=== PATIENT | male | born 1965 | race Caucasian/White ===

== ENCOUNTER 2018-01-04 14:03 | Outpatient (CLI) | payer BC ==
[~2018-01-04] VITALS: Ht 167.6 cm; Wt 88.0 kg
[2018-01-04] MEDS ORDERED: methylPREDNISolone 80 MG/ML (DEPO MEDROL) VIAL ONE (14:16)
[2018-01-04 14:25] VITALS: BP 155/85
[2018-01-04 14:40] VITALS: BP 150/92
== END 2018-01-04 14:43 | disposition home or self-care (01) ==
LOC: CARD 14:03
PROVIDERS: ATTEND Pain Medicine Interventional Pain Medicine
DX: M54.16 Radiculopathy, lumbar region (principal)
CPT/HCPCS: 62323

== ENCOUNTER → 2019-01-03 | Emergency (ER) | payer BC ==
[~2019-01-03] VITALS: Ht 167.6 cm; Wt 82.6 kg
[~2019-01-03] MED LIST: HYDR-4226 PO; METH-313 PO; SULF1TAB35 PO; TRIM/SULFAMETH 160/800 (SEPTRA DS) TAB PO ONE
--- NOTE | 2019-01-03 13:44 | ED Head Injury ---
General Chief Complaint: Head/Cervical Problems Stated Complaint: HEAD INJURY Nursing Triage Note: STATES A WEEK AGO MONDAY HE HAD SEVERE PAIN IN HIS SCROTUM. HE WALKED TO THE BATHROOM AND WOKE UP FACE DOWN ON THE BATHROOM FLOOR. COMPLAINS OF HEAD AND NECK PAIN ALONG WITH DILATED PUPILS AND MEMORY LOSS. CALLED HIS DR WHO TOLD HIM TO COME HERE FOR A CT. ALSO STATES HE IS STILL HAVING SCROTAL PAIN AND THINKS HE HAS A INFECTION IN HIS PROSTATE BECAUSE HE HAS HAD ONE BEFORE. Source: patient ( sure of the right) Exam Limitations: no limitations History of Present Illness Date Seen by Provider: Jan 03, 2019 Time Seen by Provider: 13:40 Initial Comments is to ER with a one-week history of pain in the perineal space and urinary frequency. He the pain is very intense, but a week ago that caused him to become diaphoretic and then he fell face forward striking the left side of his cheek on the floor. Since then he's had headaches, neck pain, intermittent memory loss and yesterday noticed dilated pupils. He is on baby aspirin daily. In regards to his perineal pain he had this before and states that it was a infection of his prostate. He denies any sores wounds or skin changes to the perineal or scrotal region. Her to fall because he was very diaphoretic at the time. Occurred: last week Severity: moderate Location: global Method of Injury: direct blow, fell Loss of Consciousness: no loss of consciousness Associated Systoms: Fever/Chills, Headaches, Syncope (chills but no fever) Allergies and Home Medications Allergies Coded Allergies: cephalexin (Verified Allergy, Unknown, 01/03/19) shellfish derived (Verified Allergy, Unknown, 01/03/19) Home Medications Hydrocodone/Acetaminophen 1 Each Tablet, 1 EACH PO Q6H PRN for PAIN-MODERATE Prescribed by: KORTNEY PENNY on 01/03/19 1448 Methocarbamol 750 Mg Tablet, 750 MG PO Q4H PRN for PAIN-MODERATE TO SEVERE Prescribed by: KORTNEY PENNY on 01/03/19 1448 Sulfamethoxazole/Trimethoprim 1 Each Tablet, 1 EACH PO BID Prescribed by: KORTNEY PENNY on 01/03/19 1448 Patient Home Medication List Home Medication List Reviewed: Yes Review of Systems Review of Systems Constitutional: see HPI Eyes: No Symptoms Reported Ears, Nose, Mouth, Throat: no symptoms reported Respiratory: no symptoms reported Cardiovascular: no symptoms reported Gastrointestinal: No abdominal pain Genitourinary: see HPI, dysuria, frequency, pain Musculoskeletal: no symptoms reported Skin: no symptoms reported Psychiatric/Neurological: No Symptoms Reported Endocrine: No Symptoms Reported Past Kevvgns-Yvrjri-Znawjq Hx Patient Social History Alcohol Use: Denies Use Recreational Drug Use: No Smoking Status: Never a Smoker Recent Foreign Travel: No Contact w/Someone Who Travel: No Recent Infectious Disease Expo: No Recent Hopitalizations: No Seasonal Allergies Seasonal Allergies: No Past Medical History Surgeries: No Respiratory: No Cardiac: No Neurological: No Genitourinary: No Gastrointestinal: No Musculoskeletal: No Endocrine: No HEENT: No Cancer: No Psychosocial: No Integumentary: No Blood Disorders: No Physical Exam Vital Signs Vital Signs - First Documented 01/03/19 12:20 Temp 97.7 Pulse 108 Resp 16 B/P (MAP) 140/92 (108) Pulse Ox 96 O2 Delivery Room Air Capillary Refill : Less Than 3 Seconds Height, Weight, BMI Height: 5'6.00" Weight: 182lbs. 0.0oz. 82.319751hy; 31.3 BMI Method:Stated General Appearance: WD/WN, no apparent distress HEENT: PERRL/EOMI, normal ENT inspection, other (dilated pupils bilaterally that are symmetrical and reactive) Neck: non-tender, full range of motion Respiratory: no respiratory distress, no accessory muscle use Gastrointestinal: normal bowel sounds, non tender Extremities: normal range of motion, non-tender Psychiatric: alert, oriented x 3 Crainal Nerves: normal hearing, normal speech, PERRL Kailey Coma Score Best Eye Response: (4) Open Spontaneously Best Verbal Response: (5) Oriented Best Motor Response: (6) Obeys Commands Kailey Total: 15 Progress/Results/Core Measures Results/Orders Lab Results Laboratory Tests Test 01/03/19 13:35 Range/Units White Blood Count 9.6 4.3-11.0 10^3/uL Red Blood Count 5.28 4.35-5.85 10^6/uL Hemoglobin 17.0 13.3-17.7 G/DL Hematocrit 48 40-54 % Mean Corpuscular Volume 92 80-99 FL Mean Corpuscular Hemoglobin 32 25-34 PG Mean Corpuscular Hemoglobin Concent 35 32-36 G/DL Red Cell Distribution Width 13.6 10.0-14.5 % Platelet Count 215 130-400 10^3/uL Mean Platelet Volume 9.3 7.4-10.4 FL Neutrophils (%) (Auto) 67 42-75 % Lymphocytes (%) (Auto) 22 12-44 % Monocytes (%) (Auto) 9 0-12 % Eosinophils (%) (Auto) 2 0-10 % Basophils (%) (Auto) 1 0-10 % Neutrophils # (Auto) 6.4 1.8-7.8 X 10^3 Lymphocytes # (Auto) 2.1 1.0-4.0 X 10^3 Monocytes # (Auto) 0.9 0.0-1.0 X 10^3 Eosinophils # (Auto) 0.2 0.0-0.3 10^3/uL Basophils # (Auto) 0.1 0.0-0.1 10^3/uL Urine Color YELLOW Urine Clarity CLEAR Urine pH 6 5-9 Urine Specific [place] 1.015 L 1.016-1.022 Urine Protein 1+ H NEGATIVE Urine Glucose (UA) NEGATIVE NEGATIVE Urine Ketones NEGATIVE NEGATIVE Urine Nitrite NEGATIVE NEGATIVE Urine Bilirubin NEGATIVE NEGATIVE Urine Urobilinogen NORMAL NORMAL MG/DL Urine Leukocyte Esterase 1+ H NEGATIVE Urine RBC (Auto) NEGATIVE NEGATIVE Urine RBC NONE /HPF Urine WBC RARE /HPF Urine Squamous Epithelial Cells RARE /HPF Urine Crystals NONE /LPF Urine Bacteria NEGATIVE /HPF Urine Casts NONE /LPF Urine Mucus SMALL H /LPF Urine Culture Indicated NO Sodium Level 138 135-145 MMOL/L Potassium Level 4.4 3.6-5.0 MMOL/L Chloride Level 102 98-107 MMOL/L Carbon Dioxide Level 23 21-32 MMOL/L Anion Gap 13 5-14 MMOL/L Blood Urea Nitrogen 19 H 7-18 MG/DL Creatinine 1.15 0.60-1.30 MG/DL Estimat Glomerular Filtration Rate > 60 BUN/Creatinine Ratio 17 Glucose Level 99 70-105 MG/DL Calcium Level 10.1 8.5-10.1 MG/DL Corrected Calcium 8.5-10.1 MG/DL Total Bilirubin 0.7 0.1-1.0 MG/DL Aspartate Amino Transf (AST/SGOT) 43 H 5-34 U/L Alanine Aminotransferase (ALT/SGPT) 31 0-55 U/L Alkaline Phosphatase 54 40-136 U/L Total Protein 7.7 6.4-8.2 GM/DL Albumin 4.7 H 3.2-4.5 GM/DL My Orders Orders - KORTNEY PENNY APRN Cbc With Automated Diff (01/03/19 13:37) Comprehensive Metabolic Panel (01/03/19 13:37) Ua Culture If Indicated (01/03/19 13:37) Ct Head/Face/Cervical Wo (01/03/19 13:37) Lactated Ringers (Lr 1000 Ml Iv Solution (01/03/19 13:45) Iv Heplock-Insert (Order) (01/03/19 13:37) Urine Culture (01/03/19 14:29) Sulfamethoxazole/Trimet Ds Tab (Bactrim (01/03/19 15:00) Sulfamethoxazole/Trimet Ds Tab (Bactrim (01/03/19 14:46) Medications Given in ED Current Medications Medications Dose Ordered Sig/Jania Route Start Time Stop Time Status Last Admin Dose Admin Trimethoprim/ Sulfamethoxazole 2 ea ONCE ONCE PO 01/03/19 15:00 01/03/19 15:01 DC 01/03/19 14:50 2 EA Vital Signs/I&O 01/03/19 01/03/19 12:20 14:54 Temp 97.7 97.7 Pulse 108 108 Resp 16 16 B/P (MAP) 140/92 (108) 140/92 (108) Pulse Ox 96 96 O2 Delivery Room Air Blood Pressure Mean: 108 Diagnostic Imaging Diagonstic Imaging: CT Comments NAME: MICAH NELLYDARRELL [facility] REC#: [id number] PT STATUS: REG ER : 1965 PHYSICIAN: KORTNEY PENNY APRN ADMIT DATE: 01/03/19/ER Draft Date of Exam:01/03/19 CT HEAD/FACE/CERVICAL WO CLINICAL INDICATION: Patient status post fall a week ago hitting back of head. Patient has memory loss and dilated eyes and is not himself. EXAM: Axial Head CT without IV contrast. Axial Maxillofacial CT scan without IV contrast with sagittal and coronal reformations. Axial CT scan of the cervical spine with sagittal and coronal reformations. COMPARISON: None. FINDINGS: HEAD CT: There is no evidence of acute cerebral infarct, intracranial hemorrhage, or gross mass effect. The brain parenchymal volume appears appropriate for patient's age. There is normal jordan-white matter distinction. There is no significant midline shift or herniation. There is no evidence of hydrocephalus. The basal cisterns are unremarkable. MAXILLOFACIAL CT: There is bony irregularity and medial concave deformities involving the right and left nasal bones concerning for fractures. There appears to be thinning of the soft tissue adjacent to the regions and this may possibly be a chronic finding. There is rightward nasal septal deviation. There is no other concern for acute fracture or dislocation of the maxillofacial structures. There is no skull fracture. The skull, extracranial soft tissue, and orbits are unremarkable. There is a small mucus retention cyst or polyp in right maxillary sinus. Temporal bones show no significant abnormality. CERVICAL SPINE: There is no acute cervical spine fracture or dislocation. There are small spurs anteriorly involving the mid cervical spine. There is facet arthropathy. There is no significant bony central canal or neural foramen narrowing. The neck soft tissue structures show no significant abnormality. Visualized upper lung sarabia are clear. IMPRESSION: 1: There is bony deformities of the right and left nasal bones concerning for fractures. There is soft tissue thinning adjacent to the right and left sides of the nasal bone and these fractures may be chronic. Clinical correlation for pain in this region would better evaluate. 2: There is no other concern for skull or maxillofacial fracture. There is no evidence of acute intracranial process. There is no intracranial hemorrhage. 3: Cervical spine degenerative disease with no acute fracture or dislocation. Dictated on workstation # [id number] Dict: 01/03/19 1424 Trans: 01/03/19 1436 [facility] [id number] Interpreted by: ALY ESPITIA MD Electronically signed by: Departure Impression Primary Impression: Brain concussion Qualified Codes: S06.0X9A - Concussion with loss of consciousness of unspecified duration, initial encounter Additional Impression: Prostatitis Qualified Codes: N41.0 - Acute prostatitis Disposition: 01 HOME, SELF-CARE Condition: Stable Departure-Patient Inst. Decision time for Depature: 14:47 Referrals: KAMINI WHITMORE MD (PCP/Family) Primary Care Physician Patient Instructions: Concussion, Adult (DC), Prostatitis Add. Discharge Instructions: 1. Return to ER for any concerns 2. Medication as directed 3. All discharge instructions reviewed with patient and/or family. Voiced understanding. Scripts Methocarbamol (Robaxin-750) 750 Mg Tablet 750 MG PO Q4H PRN for PAIN-MODERATE TO SEVERE, #14 TAB Prov: KORTNEY PENNY APRN 01/03/19 Hydrocodone/Acetaminophen ([place] 5-325 Tablet) 1 Each Tablet 1 EACH PO Q6H PRN for PAIN-MODERATE MDD 10, #14 TAB Prov: KORTNEY PENNY APRN 01/03/19 Sulfamethoxazole/Trimethoprim (Bactrim Ds Tablet) 1 Each Tablet 1 EACH PO BID, #30 TAB Prov: KORTNEY PENNY APRN 01/03/19 Work/School Note: Work Release Form Date Seen in the Emergency Department: Jan 03, 2019 Return to Work: Jan 07, 2019 Copy Copies To 1: KAMINI WHITMORE MD, PETER J APRN Jan 03, 2019 13:44
[2019-01-03 13:54] LABS: BASOPHILS # (AUTO) 0.1 10^3/uL (0.0-0.1); BASOPHILS % (AUTO) 1 % (0-10); EOSINOPHILS # (AUTO) 0.2 10^3/uL (0.0-0.3); EOSINOPHILS % (AUTO) 2 % (0-10); HEMATOCRIT 48 % (40-54); LYMPHOCYTES # (AUTO) 2.1 X 10^3 (1.0-4.0); LYMPHOCYTES % (AUTO) 22 % (12-44); MEAN CORPUSCULAR HEMOGLOBIN 32 PG (25-34); MEAN CORPUSCULAR HGB CONC 35 G/DL (32-36); MEAN CORPUSCULAR VOLUME 92 FL (80-99); MEAN PLATELET VOLUME 9.3 FL (7.4-10.4); MONOCYTES # (AUTO) 0.9 X 10^3 (0.0-1.0); MONOCYTES % (AUTO) 9 % (0-12); NEUTROPHILS # (AUTO) 6.4 X 10^3 (1.8-7.8); NEUTROPHILS % (AUTO) 67 % (42-75); PLATELET COUNT 215 10^3/uL (130-400); RED CELL DISTRIBUTION WIDTH 13.6 % (10.0-14.5); WHITE BLOOD COUNT 9.6 10^3/uL (4.3-11.0)
[2019-01-03 14:07] LABS: ALANINE AMINOTRANSFERASE 31 U/L (0-55); ALBUMIN 4.7 GM/DL (3.2-4.5); ALKALINE PHOSPHATASE 54 U/L (40-136); BILIRUBIN,TOTAL 0.7 MG/DL (0.1-1.0); BUN/CREATININE RATIO 17; CALCIUM 10.1 MG/DL (8.5-10.1); CARBON DIOXIDE 23 MMOL/L (21-32); CHLORIDE 102 MMOL/L (98-107); CREATININE SERUM 1.15 MG/DL (0.60-1.30); GFR ESTIMATED > 60; GLUCOSE 99 MG/DL (70-105); POTASSIUM 4.4 MMOL/L (3.6-5.0); SODIUM 138 MMOL/L (135-145); TOTAL PROTEIN 7.7 GM/DL (6.4-8.2)
[2019-01-03 14:12] LABS: BILIRUBIN,URINE NEGATIVE (NEGATIVE); CLARITY,URINE CLEAR; COLOR,URINE YELLOW; GLUCOSE, URINE (UA) NEGATIVE (NEGATIVE); KETONES,URINE NEGATIVE (NEGATIVE); LEUKOCYTE ESTERASE ,URINE 1+ (NEGATIVE); NITRITE,URINE NEGATIVE (NEGATIVE); PH,URINE 6 (5-9); PROTEIN,URINE 1+ (NEGATIVE); UROBILINOGEN,URINE NORMAL (NORMAL)
[2019-01-03 14:19] LABS: BACTERIA,URINE NEGATIVE /HPF; SQUAMOUS EPITHELIAL CELL,UR RARE /HPF; WBC,URINE RARE /HPF
[2019-01-03] MEDS: LACTATED RINGERS 1,000 ML IV SCH ×2 (14:30→17:10)
--- NOTE | 2019-01-03 14:36 | Diagnostic Imaging Report ---
CLINICAL INDICATION: Patient status post fall a week ago hitting back of head. Patient has memory loss and dilated eyes and is not himself. EXAM: Axial Head CT without IV contrast. Axial Maxillofacial CT scan without IV contrast with sagittal and coronal reformations. Axial CT scan of the cervical spine with sagittal and coronal reformations. COMPARISON: None. FINDINGS: HEAD CT: There is no evidence of acute cerebral infarct, intracranial hemorrhage, or gross mass effect. The brain parenchymal volume appears appropriate for patient's age. There is normal jordan-white matter distinction. There is no significant midline shift or herniation. There is no evidence of hydrocephalus. The basal cisterns are unremarkable. MAXILLOFACIAL CT: There is bony irregularity and medial concave deformities involving the right and left nasal bones concerning for fractures. There appears to be thinning of the soft tissue adjacent to the regions and this may possibly be a chronic finding. There is rightward nasal septal deviation. There is no other concern for acute fracture or dislocation of the maxillofacial structures. There is no skull fracture. The skull, extracranial soft tissue, and orbits are unremarkable. There is a small mucus retention cyst or polyp in right maxillary sinus. Temporal bones show no significant abnormality. CERVICAL SPINE: There is no acute cervical spine fracture or dislocation. There are small spurs anteriorly involving the mid cervical spine. There is facet arthropathy. There is no significant bony central canal or neural foramen narrowing. The neck soft tissue structures show no significant abnormality. Visualized upper lung sarabia are clear. IMPRESSION: 1: There is bony deformities of the right and left nasal bones concerning for fractures. There is soft tissue thinning adjacent to the right and left sides of the nasal bone and these fractures may be chronic. Clinical correlation for pain in this region would better evaluate. 2: There is no other concern for skull or maxillofacial fracture. There is no evidence of acute intracranial process. There is no intracranial hemorrhage. 3: Cervical spine degenerative disease with no acute fracture or dislocation. Dictated by: Dictated on workstation # [id number]
[2019-01-03 14:54] VITALS: BP 140/92
== END | disposition home or self-care (01) ==
LOC: EDUNIT# 12:10 → ER 12:17
DX: S06.0X9A Concussion with loss of consciousness of unspecified duration, initial encounter (principal); N41.0 Acute prostatitis; R40.2142 Coma scale, eyes open, spontaneous, at arrival to emergency department; R40.2252 Coma scale, best verbal response, oriented, at arrival to emergency department; R40.2362 Coma scale, best motor response, obeys commands, at arrival to emergency department; Z79.51 Long term (current) use of inhaled steroids; Z88.1 Allergy status to other antibiotic agents; W01.198A Fall on same level from slipping, tripping and stumbling with subsequent striking against other object, initial encounter
CPT/HCPCS: 36415; 70450; 70486; 72125; 80053; 81000; 85025; 87088; 96360

== ENCOUNTER 2021-04-14 05:33 | Outpatient (CLI) | payer BC ==
[~2021-04-14] VITALS: Ht 167.7 cm; Wt 96.8 kg
[~2021-04-14 05:33] MED LIST changes: -TRIM/SULFAMETH 160/800 (SEPTRA DS) TAB PO ONE
[2021-04-14] MEDS ORDERED: FLUT1DIS26 IH (11:27)
[2021-04-14] MEDS ORDERED: TRIA1CAP4 PO (11:27)
[2021-04-14] MEDS ORDERED: SILD100T67 PO (11:27)
[2021-04-14] MEDS ORDERED: LISI40TA9 PO (11:27)
[2021-04-14] MEDS ORDERED: TRAM50TA3 PO (11:27)
[2021-04-14] MEDS ORDERED: NALT1TAB PO (11:27)
[2021-04-14] MEDS ORDERED: ZFR20T PO (11:27)
[2021-04-14] MEDS ORDERED: ROSU20TA32 PO (11:27)
[2021-04-14] MEDS ORDERED: FLUT15.845 NS (11:27)
[2021-04-14] MEDS ORDERED: DICL75TA2 PO (11:27)
[2021-04-14] MEDS ORDERED: METF-397 PO (11:27)
[2021-04-14] MEDS ORDERED: PARO40TA3 PO (11:27)
[2021-04-14] MEDS ORDERED: TADA5TAB3 PO (11:27)
[2021-04-14] MEDS ORDERED: RT-ALBUINH IH (11:27)
[2021-04-14] MEDS ORDERED: LEVO50CA4 PO (11:27)
[2021-04-14] MEDS ORDERED: CYCL10TA9 PO (11:27)
[2021-04-14] MEDS ORDERED: METO50TA7 PO (11:27)
[2021-04-14] MEDS ORDERED: LORA-405 SL (11:27)
[2021-04-14] MEDS ORDERED: ICOS1CAP PO (11:27)
== END 2021-04-14 12:29 | disposition home or self-care (01) ==
LOC: PREOP 05:33
PROVIDERS: ATTEND Surgery
DX: Z01.818 Encounter for other preprocedural examination (principal)

== ENCOUNTER → 2021-04-16 | Outpatient (CLI) | payer BC ==
[~2021-04-16] MED LIST changes: +CYCL10TA9 PO; +DICL75TA2 PO; +FLUT15.845 NS; +FLUT1DIS26 IH; +ICOS1CAP PO; +LEVO50CA4 PO; +LISI40TA9 PO; +LORA-405 SL; +METF-397 PO; +METO50TA7 PO; +NALT1TAB PO; +PARO40TA3 PO; +ROSU20TA32 PO; +RT-ALBUINH IH; +SILD100T67 PO; +TADA5TAB3 PO; +TRAM50TA3 PO; +TRIA1CAP4 PO; +ZFR20T PO
== END ==
LOC: LAB FS 09:58
PROVIDERS: ATTEND Surgery
DX: K92.1 Melena (principal); Z20.822 Contact with and (suspected) exposure to COVID-19
CPT/HCPCS: 87635; 87636

== ENCOUNTER 2021-04-21 12:13 | Day surgery (SDC) | payer BC ==
[2021-04-21] VITALS (8 sets, daily range): BP systolic 72–129; BP diastolic 46–62
[~2021-04-21] VITALS: Ht 167.7 cm; Wt 96.8 kg
[~2021-04-21 12:13] MED LIST changes: +LACTATED RINGERS 1,000 ML IV ONE
[2021-04-21] MEDS ORDERED: LACTATED RINGERS 1,000 ML IV STA (12:23)
[2021-04-21] MEDS ORDERED: HURRICAINE EXT TUBE (BENZOCAINE) XX PRN (12:30)
[2021-04-21] MEDS ORDERED: MIDAZOLAM 2 MG/2 ML (VERSED) VIAL ONE (12:51)
[2021-04-21] MEDS ORDERED: PROPOFOL INJECTION 50 ML IV ONE ×2 (12:51→13:06)
--- NOTE | 2021-04-21 12:58 | Progress Note-Pre Operative ---
Pre-Operative Progress Note H&P Reviewed The H&P was reviewed, patient examined and no changes noted. Time Seen by Provider: 12:57 Date H&P Reviewed: Apr 21, 2021 Time H&P Reviewed: 12:57 Pre-Operative Diagnosis: Hematochezia, Gastritis CORAZON MALIN DO Apr 21, 2021 12:58
[2021-04-21] MEDS ORDERED: HURRICAINE EXT TUBE (BENZOCAINE) ONE (12:59)
[2021-04-21] MEDS ORDERED: PHENYLEPHRINE 100 MCG/ML 10 ML (ANESTHESIA) SYR ONE (13:28)
--- NOTE | 2021-04-21 13:54 | Progress Note-Post Operative ---
Post-Operative Progess Note Surgeon (s)/Rock Singer (s) Surgeon CORAZON MALIN DO Rock Singer: none Pre-Operative Diagnosis Hematochezia, Gastritis Post-Operative Diagnosis Esophageal ulcers Gastric ulcers hiatal hernia colon polyps int hemorrhoids Procedure & Operative Findings Date of Procedure 04/21/21 Procedure Performed/Findings EGD with bx Colon with snare PROCEDURE NOTE: After informed consent was obtained, the patient was brought to the endoscopy suite, placed in bed in left lateral decubitus position. He was administered IV sedation by the DINKEY MECHANIC who then monitored his vitals the entire time, heart rate, blood pressure and pulse ox, started with the EGD, placed the pediatric scope down the mouth through the esophagus into the stomach, ulcers seen in the esophagus, took a picture, pushed into the duodenum. Duodenum looked fine. Pulled back and did a biopsy of the ulcers near the antrum as well as biopsy of body of stomach, retroflexed the scope. He had a small hiatal hernia, pulled the scope into the GE junction, took a picture here and then pushed the scope back into the stomach and suctioned all the air out, then pulled the scope up the esophagus and did three biopsies of the ulcers just above GE jxn. Pulled the scope up the esophagus, the upper half looked ok (took pics) really did not see bad narrowing and then pulled the scope out of the mouth. Switched camera, switched gloves, went down below, started the colonoscopy. Pushed all the way to the cecum about 150 cm in, took a picture of the appendiceal orifice and noted the ileo-cecal valve. Then slowly withdrew the scope insufflating to look circumferentially at the deleon looking at the cecum, up the ascending colon. In the ascending colon, found 3 polyps (one was flat) and did snare polypectomies to remove all of them and then continued up the ascending colon to the hepatic flexure, down the transverse colon, to the splenic flexure, into the descending colon down into the sigmoid and finally into the rectum, retroflexed in the rectal vault, saw sone minimal internal hemorrhoids and took a picture.Then removed the scope. The patient tolerated the procedure. He was recovered in endoscopy suite. Anesthesia Type IV sedation by DINKEY MECHANIC Estimated Blood Loss Estimated blood loss (mL): scant Specimens/Packing Specimens Removed antral bx body of stomach bx esophageal bx asc colon polyp x 3 CORAZON MALIN DO Apr 21, 2021 13:54
--- NOTE | 2021-04-21 13:55 | Endoscopy Discharge Instruct ---
Endo Procedure/Findings Findings 1.: Gastric Ulcer 2.: Hiatal Hernia, Veliz's Esophagus 3.: Polyp 4.: Internal Hemorrhoids Discharge Instructions - Activity: You might feel a little sleepy until tomorrow. This is due to the medicine you received to relax you. Until tomorrow, you should: NOT drive a car, operate machinery or power tools. NOT drink any alcoholic beverages. NOT make any important decisions or sign importortant papers. Do not return to work until tomorrow, unless otherwise instructed. Resume previous activities tomorrow. Diet: Start by taking liquids. If you tolerate liquids, advance to solid food. 1.: EGD in 6-8 weeks 2.: Colonscopy in 5 years Notify Physician - If you experience excessive bleeding, unusual abdominal pain, fever, or chest pain, contact your doctor immediately. CORAZON MALIN DO Apr 21, 2021 13:55
--- NOTE | 2021-04-21 14:48 | Anesthesia-General Post-Op ---
MAC Patient Condition Mental Status/LOC: Same as Preop Cardiovascular: Satisfactory Nausea/Vomiting: Absent Respiratory: Satisfactory Pain: Controlled Complications: Absent Post Op Complications Complications None Follow Up Care/Instructions Patient Instructions None needed. Anesthesiology Discharge Order Discharge Order Patient is doing well, no complaints, stable vital signs, no apparent adverse anesthesia problems. No complications reported per nursing. DRU VASQUEZ CRNA Apr 21, 2021 14:48
== END 2021-04-21 14:40 | disposition home or self-care (01) ==
LOC: ENDO 12:13
PROVIDERS: ATTEND Surgery
DX: D12.2 Benign neoplasm of ascending colon (principal); K21.00 Gastro-esophageal reflux disease with esophagitis, without bleeding; K29.71 Gastritis, unspecified, with bleeding; K22.10 Ulcer of esophagus without bleeding; K44.9 Diaphragmatic hernia without obstruction or gangrene; K64.8 Other hemorrhoids; I10 Essential (primary) hypertension; J45.909 Unspecified asthma, uncomplicated; E11.9 Type 2 diabetes mellitus without complications; E78.00 Pure hypercholesterolemia, unspecified; E07.9 Disorder of thyroid, unspecified; K22.2 Esophageal obstruction; Z91.013 Allergy to seafood; Z79.1 Long term (current) use of non-steroidal anti-inflammatories (NSAID); Z79.51 Long term (current) use of inhaled steroids; Z79.899 Other long term (current) drug therapy; Z79.84 Long term (current) use of oral hypoglycemic drugs; Z79.891 Long term (current) use of opiate analgesic; Z79.890 Hormone replacement therapy
CPT/HCPCS: 88305; 88312

== ENCOUNTER → 2022-02-23 | Outpatient (CLI) | payer BC ==
[~2022-02-23] MED LIST changes: +CYCL10TA25 PO; -CYCL10TA9 PO; -LACTATED RINGERS 1,000 ML IV ONE; -SULF1TAB35 PO; +SULF1TAB38 PO; -TADA5TAB3 PO; +TADA5TAB4 PO
[2022-02-23 09:43] LABS: BASOPHILS # (AUTO) 0.1 10^3/uL (0.0-0.1); BASOPHILS % (AUTO) 2 % (0-10); EOSINOPHILS # (AUTO) 0.8 10^3/uL (0.0-0.3); EOSINOPHILS % (AUTO) 12 % (0-10); HEMATOCRIT 38 % (40-54); HEMOGLOBIN 12.7 g/dL (13.3-17.7); LYMPHOCYTES # (AUTO) 1.8 10^3/uL (1.0-4.0); LYMPHOCYTES % (AUTO) 27 % (12-44); MEAN CORPUSCULAR HEMOGLOBIN 32 pg (25-34); MEAN CORPUSCULAR HGB CONC 34 g/dL (32-36); MEAN CORPUSCULAR VOLUME 94 fL (80-99); MEAN PLATELET VOLUME 8.8 fL (9.0-12.2); MONOCYTES # (AUTO) 0.6 10^3/uL (0.0-1.0); MONOCYTES % (AUTO) 9 % (0-12); NEUTROPHILS # (AUTO) 3.5 10^3/uL (1.8-7.8); NEUTROPHILS % (AUTO) 50 % (42-75); PLATELET COUNT 202 10^3/uL (130-400); WHITE BLOOD COUNT 6.9 10^3/uL (4.3-11.0)
[2022-02-23 10:10] LABS: BILIRUBIN,TOTAL 0.3 MG/DL (0.1-1.0); CALCIUM 9.7 MG/DL (8.5-10.1); CREATININE SERUM 1.52 MG/DL (0.60-1.30); POTASSIUM 4.9 MMOL/L (3.6-5.0)
[2022-02-23 10:11] LABS: ALBUMIN 4.4 GM/DL (3.2-4.5)
== END ==
LOC: LAB FS 09:14
PROVIDERS: ATTEND Family Medicine
DX: Z00.00 Encounter for general adult medical examination without abnormal findings (principal); R79.89 Other specified abnormal findings of blood chemistry
CPT/HCPCS: 36415; 80053; 80061; 84270; 84403; 85025

== ENCOUNTER → 2022-03-01 | Outpatient (CLI) | payer BC | LOC: LAB FS 13:44 | PROVIDERS: ATTEND Family Medicine | DX: U07.1 COVID-19 (principal); K21.9 Gastro-esophageal reflux disease without esophagitis; I10 Essential (primary) hypertension; F41.1 Generalized anxiety disorder; E03.9 Hypothyroidism, unspecified; E78.2 Mixed hyperlipidemia; N40.0 Benign prostatic hyperplasia without lower urinary tract symptoms; R73.9 Hyperglycemia, unspecified | CPT/HCPCS: 36415; 83036; 84443 ==

== ENCOUNTER 2023-06-18 12:40 | Emergency (ER) | payer BC ==
[~2023-06-18] VITALS: Ht 167 cm; Wt 78.0 kg
[~2023-06-18 12:40] MED LIST changes: +ALBU8.5H6 IH; -ROSU20TA32 PO; +ROSU20TA73 PO; -RT-ALBUINH IH; -TRIA1CAP4 PO; +TRIA1CAP84 PO; +ZAFI20TA18 PO; -ZFR20T PO
--- NOTE | 2023-06-18 13:06 | ED Abdominal Pain ---
General Chief Complaint: Abdominal/GI Problems Stated Complaint: VOMITING/AB PAIN Nursing Triage Note: PT AMB TO ROOM 6 PT CO OF ABD DISCOMFORT 07/23. STATES HAVING DIFFICULTY URINATING AND HAVING DIARRHEA. STATES HAS FEVERS STATES SWEATS AND CHILLS. CURRENTLY IS TAKING CIPRO FOR INFECTION AND FINESTERIDE. HAS SEEN HER PAST 2 WEEKS. Source of Information: Patient Exam Limitations: No Limitations History of Present Illness Date Seen by Provider: Jun 18, 2023 Time Seen by Provider: 12:49 Initial Comments 58-year-old male presents the ER with complaints of lower abdominal discomfort for several weeks or months. He has been having problems with urination, states he has increased urination, only able to urinate small amount of time, feels as though he is not emptying his bladder. He saw his primary care provider 2 weeks ago who prescribed him ciprofloxacin and finasteride for prostatitis. He complains of allover abdominal pain which started a couple days ago. He reports feeling feverish and having the chills. He reports nausea and vomiting. States within the last 24 hours he started having diarrhea, reports approximately 4-5 episodes of loose stools in the last 24 hours. He denies dysuria. Allergies and Home Medications Allergies Coded Allergies: cephalexin (Verified Allergy, Unknown, 01/03/19) shellfish derived (Verified Allergy, Unknown, 01/03/19) Patient Home Medication List Home Medication List Reviewed: Yes Albuterol Sulfate (Ventolin Hfa) 1 Puff Puff, 2 PUFF IH Q6H, (Reported) Entered as Reported by: RANDAL HEAD on 04/14/21 1127 Cyclobenzaprine HCl (Cyclobenzaprine HCl) 10 Mg Tablet, 10 MG PO Q8H PRN for SPASMS, (Reported) Entered as Reported by: RANDAL HEAD on 04/14/21 1127 Diclofenac Sodium (Diclofenac Sodium) 75 Mg Tablet.dr, 75 MG PO BID, (Reported) Entered as Reported by: RANDAL HEAD on 04/14/21 112 Dicyclomine HCl (Dicyclomine HCl) 20 Mg Tablet, 20 MG PO ACHS Prescribed by: Jennie Nathan on 06/18/23 1451 Fluticasone Propionate (Fluticasone Propionate) 15.8 Ml [place].susp, 15.8 ML NS BID, (Reported) Entered as Reported by: RANDAL HEAD on 04/14/211126 Fluticasone/Salmeterol (Advair 250-50 Diskus) 1 Each Blst.w.dev, 1 EACH IH BID, (Reported) Entered as Reported by: RANDAL HEAD on 04/14/211126 Icosapent Ethyl (Vascepa) 1 Gm Capsule, 2 GM PO HS, (Reported) Entered as Reported by: RANDAL HEAD on 04/14/211126 Levothyroxine Sodium (Levothyroxine) 50 Mcg Capsule, 50 MCG PO DAILY, (Reported) Entered as Reported by: RANDAL HEAD on 04/14/211126 Lisinopril (Lisinopril) 40 Mg Tablet, 40 MG PO DAILY, (Reported) Entered as Reported by: RANDAL HEAD on 04/14/211126 Lorazepam (Ativan) 1 Mg Tablet, 1 MG SL TID, (Reported) Entered as Reported by: RANDAL HEAD on 04/14/211126 Metformin HCl (Metformin HCl) 500 Mg Tablet, 1,000 MG PO HS, (Reported) Entered as Reported by: RANDAL HEAD on 04/14/211126 Metoprolol Succinate (Metoprolol Succinate) 50 Mg Tab.er.24h, 50 MG PO DAILY, (Reported) Entered as Reported by: RANDAL HEAD on 04/14/211126 Naltrexone HCl/Bupropion HCl (Contrave ER 8-90 mg Tablet) 1 Each Tablet.er, 1 EACH PO DAILY, (Reported) Entered as Reported by: RANDAL HEAD on 04/14/211126 Ondansetron (Ondansetron Odt) 4 Mg Tab.rapdis, 4 MG SL Q4H PRN for NAUSEA/VOMITING Prescribed by: Jennie Nathan on 06/18/23 1451 Paroxetine HCl (Paroxetine HCl) 40 Mg Tablet, 40 MG PO DAILY, (Reported) Entered as Reported by: RANDAL HEAD on 04/14/211126 Rosuvastatin Calcium (Rosuvastatin Calcium) 20 Mg Tablet, 20 MG PO HS, (Reported) Entered as Reported by: RANDAL HEAD on 6/2/21 1127 Sildenafil Citrate (Sildenafil Citrate) 100 Mg Tablet, 100 MG PO DAILY, (Reported) Entered as Reported by: RANDAL HEAD on 04/14/21 1127 Tadalafil (Tadalafil) 5 Mg Tablet, 5 MG PO DAILY, (Reported) Entered as Reported by: RANDAL HEAD on 04/14/21 1127 Triamterene/Hydrochlorothiazid (Triamterene-Hctz 37.5-25 mg Cp) 1 Each Capsule, 1 EACH PO DAILY, (Reported) Entered as Reported by: RANDAL HEAD on 04/14/21 1127 Zafirlukast (Zafirlukast) 20 Mg Tablet, 20 MG PO BID, (Reported) Entered as Reported by: RANDAL HEAD on 04/14/21 1127 Discontinued Medications Tramadol HCl (Tramadol HCl) 50 Mg Tablet, 50 MG PO Q6H PRN for ABDOMINAL PAIN Prescribed by: Jennie Nathan on 06/18/23 1440 Review of Systems Review of Systems Constitutional: see HPI Past Eqocnop-Vsnjpv-Whjbeg Hx Patient Social History Tobacco Use?: No Substance use?: Yes Substance type: Marijuana Additional substance use comme: SOMETIMES TAKES THC GUMMIES Alcohol Use?: No Pt feels they are or have been: No Immunizations Up To Date First/Initial COVID19 Vaccinat: 04-14-21 Second COVID19 Vaccination Alan: 04-14-21 Third COVID19 Vaccination Date: 04-14-21 Seasonal Allergies Seasonal Allergies: No Past Medical History Surgery/Hospitalization HX: EGD DILITATIONS, HTN, ELEVATED CHOLESTEROL, DIABETES, DEPRESSION, STRESS MEDS Surgeries: No Respiratory: No Asthma Cardiac: No Hypertension Neurological: No Genitourinary: No Gastrointestinal: No (ESOPHAGEAL STRICTURE) Musculoskeletal: No Endocrine: Yes (PRE-DIABETIC) Hypothyroidsim HEENT: No Cancer: No Psychosocial: No Integumentary: No Blood Disorders: No Physical Exam Vital Signs Vital Signs - First Documented 06/18/23 12:48 Temp 36.9 Pulse 102 Resp 16 B/P (MAP) 138/101 (113) Pulse Ox 97 Capillary Refill : Less Than 3 Seconds Height/Weight/BMI Height: 5'6.00" Weight: 182lbs. 0.0oz. [id number]; 27.00 BMI Method:Stated General Appearance: WD/WN, no apparent distress Neck: supple, normal inspection Respiratory: lungs clear, normal breath sounds, no respiratory distress, no accessory muscle use Cardiovascular: regular rate, rhythm Gastrointestinal: normal bowel sounds, soft, guarding (Right upper quadrant), tenderness (Right upper quadrant) Extremities: normal range of motion, normal inspection Neurologic/Psychiatric: alert, normal mood/affect Skin: normal color, warm/dry Focused Exam Lactate Level 06/18/23 13:15: Lactic Acid Level 0.91 Lactic Acid Level Laboratory Tests Test 06/18/23 13:15 Lactic Acid Level 0.91 MMOL/L (0.50-2.00) Progress/Results/Core Measures Results/Orders Lab Results Laboratory Tests Test 06/18/23 13:00 06/18/23 13:15 Range/Units White Blood Count 8.9 4.3-11.0 10^3/uL Red Blood Count 4.73 4.30-5.52 10^6/uL Hemoglobin 14.6 13.3-17.7 g/dL Hematocrit 41 40-54 % Mean Corpuscular Volume 88 80-99 fL Mean Corpuscular Hemoglobin 31 25-34 pg Mean Corpuscular Hemoglobin Concent 35 32-36 g/dL Red Cell Distribution Width 11.9 10.0-14.5 % Platelet Count 211 130-400 10^3/uL Mean Platelet Volume 8.9 L 9.0-12.2 fL Immature Granulocyte % (Auto) 0 % Neutrophils (%) (Auto) 83 H 42-75 % Lymphocytes (%) (Auto) 11 L 12-44 % Monocytes (%) (Auto) 5 0-12 % Eosinophils (%) (Auto) 0 0-10 % Basophils (%) (Auto) 1 0-10 % Neutrophils # (Auto) 7.3 1.8-7.8 10^3/uL Lymphocytes # (Auto) 1.0 1.0-4.0 10^3/uL Monocytes # (Auto) 0.5 0.0-1.0 10^3/uL Eosinophils # (Auto) 0.0 0.0-0.3 10^3/uL Basophils # (Auto) 0.1 0.0-0.1 10^3/uL Immature Granulocyte # (Auto) 0.0 0.0-0.1 10^3/uL Sodium Level 138 135-145 MMOL/L Potassium Level 3.8 3.6-5.0 MMOL/L Chloride Level 108 H 98-107 MMOL/L Carbon Dioxide Level 19 L 21-32 MMOL/L Anion Gap 11 5-14 MMOL/L Blood Urea Nitrogen 11 7-18 MG/DL Creatinine 0.98 0.60-1.30 MG/DL Estimat Glomerular Filtration Rate 89 BUN/Creatinine Ratio 11 Glucose Level 124 H 70-105 MG/DL Calcium Level 9.1 8.5-10.1 MG/DL Corrected Calcium 9.1 8.5-10.1 MG/DL Total Bilirubin 0.5 0.1-1.0 MG/DL Aspartate Amino Transf (AST/SGOT) 97 H 5-34 U/L Alanine Aminotransferase (ALT/SGPT) 424 H 0-55 U/L Alkaline Phosphatase 57 40-136 U/L Total Protein 6.9 6.4-8.2 GM/DL Albumin 4.0 3.2-4.5 GM/DL Lipase 56 8-78 U/L Urine Color YELLOW Urine Clarity CLEAR Urine pH 7.5 5-9 Urine Specific [place] 1.015 L 1.016-1.022 Urine Protein 1+ H NEGATIVE Urine Glucose (UA) NEGATIVE NEGATIVE Urine Ketones 4+ H NEGATIVE Urine Nitrite NEGATIVE NEGATIVE Urine Bilirubin NEGATIVE NEGATIVE Urine Urobilinogen 0.2 < = 1.0 MG/DL Urine Leukocyte Esterase TRACE H NEGATIVE Urine RBC (Auto) NEGATIVE NEGATIVE Urine RBC NONE /HPF Urine WBC 2-5 /HPF Urine Squamous Epithelial Cells 0-2 /HPF Urine Crystals NONE /LPF Urine Bacteria NEGATIVE /HPF Urine Casts NONE /LPF Urine Mucus SMALL H /LPF Urine Culture Indicated NO Lactic Acid Level 0.91 0.50-2.00 MMOL/L My Orders Orders - JENNIE BROOKS APRN Comprehensive Metabolic Panel (06/18/23 12:54) Lipase (06/18/23 12:54) Ua Culture If Indicated (06/18/23 12:54) Ed Iv/Invasive Line Start (06/18/23 12:54) Cbc With Automated Diff (06/18/23 12:54) Blood Culture (06/18/23 13:02) Lactic Acid Analyzer (06/18/23 13:02) Ns Iv 1000 Ml (Sodium Chloride 0.9%) (06/18/23 13:15) Ondansetron Injection (Zofran Injectio (06/18/23 13:15) Fentanyl Inj (Sublimaze Injection) (06/18/23 13:15) Bladder Scan (06/18/23 13:15) Ct Abdomen/Pelvis W (06/18/23 13:27) Iohexol Injection (Omnipaque 350 Mg/Ml 1 (06/18/23 13:45) Received Contrast (Hold Metformin- Contr (06/18/23 13:45) Ns (Ivpb) 100 Ml (Sodium Chloride 0.9% 1 (06/18/23 13:45) Medications Given in ED Current Medications Medications Dose Ordered Sig/Jania Route Start Time Stop Time Status Last Admin Dose Admin Fentanyl Citrate 50 mcg ONCE ONCE IVP 06/18/23 13:15 06/18/23 13:17 DC 06/18/23 13:14 50 MCG Iohexol 100 ml ONCE ONCE IV 06/18/23 13:45 06/18/23 13:46 DC 06/18/23 13:45 80 ML Ondansetron HCl 4 mg ONCE ONCE IVP 06/18/23 13:15 06/18/23 13:17 DC 06/18/23 13:14 4 MG Sodium Chloride 100 ml ONCE ONCE IV 06/18/23 13:45 06/18/23 13:46 DC 06/18/23 13:45 100 ML Vital Signs/I&O 06/18/23 06/18/23 12:48 14:55 Temp 36.9 Pulse 102 88 Resp 16 16 B/P (MAP) 138/101 (113) 124/88 Pulse Ox 97 97 Blood Pressure Mean: 113 Progress Progress Note : Progress Note Patient seen and evaluated, resting comfortably in bed, no acute distress. Based on exam and symptoms, work-up initiated including CBC, CMP, lipase, lactic acid, blood cultures x2. IV fluids, Zofran, fentanyl ordered. Will order CT scan after kidney function tests result. [address] reviewed. CBC grossly normal. CMP shows slightly elevated chloride 108, slightly decreased CO2 19, AST elevated 97, ALT elevated for 424. Lactic acid normal. Urinalysis shows 1+ protein, 1+ ketones, trace leukocytes, 2-5 WBCs, negative bacteria. CT abdomen pelvis shows coronary artery calcification, probable liver cyst, normal gallbladder, some areas of thickened small bowel wall likely enteritis, urinary bladder is decompressed with a thick wall. Abdominal pain likely due to gastroenteritis. Another possibility is C. difficile because patient is on ciprofloxacin. Results discussed with patient. Will discharge with Bentyl and Zofran. Patient instructed to follow-up with primary care provider regarding elevated LFTs, coronary artery calcification, and liver cysts. Patient instructed to complete outpatient stool studies if diarrhea continues. Discharge instructions and return precautions provided. Diagnostic Imaging Diagonstic Imaging: CT Plain Films/CT/US/NM/MRI: abdomen, pelvis Comments [facility] [place], [place] NAME: DARRELL MARTINEZ [facility] REC#: [id number] PT STATUS: REG ER : 1965 PHYSICIAN: JENNIE BROOKS APRN ADMIT DATE: 06/18/23/ER Draft Date of Exam:06/18/23 CT ABDOMEN/PELVIS W PROCEDURE: CT abdomen and pelvis with contrast. TECHNIQUE: Multiple contiguous axial images were obtained through the abdomen and pelvis after administration of intravenous contrast. Auto Exposure Controls were utilized during the CT exam to meet ALARA standards for radiation dose reduction. All CT scans use one or more of the following dose optimizing techniques: automated exposure control, MA and/or KvP adjustment based on patient size and exam type or iterative reconstruction. INDICATION: 58-year-old male, abdominal discomfort, 9 of 10. Difficulty urinating and having diarrhea. Fever, sweats and chills. CORRELATION STUDY: None. FINDINGS: LOWER THORAX: Heart size normal with prominent coronary artery calcification. Lung bases clear. Mild circumferential wall thickening of the GE junction. LIVER: Probable tiny cysts in both the left and right hepatic lobes. GALLBLADDER: Present and unremarkable. No bile duct dilatation. SPLEEN: Unremarkable. PANCREAS: Unremarkable. ADRENAL GLANDS: Unremarkable. KIDNEYS: Normal enhancement. Symmetric perinephric stranding. No calcification or obstruction. ABDOMINAL AORTA: Unremarkable, nonaneurysmal. A few shotty aortocaval lymph nodes. GASTROINTESTINAL TRACT: Small amount of fluid and retained gastric contents in the stomach. No small bowel obstruction. However, there are some areas of thickened small bowel wall. Normal appendix. Small amount of fluid in the distal colon suggestive of diarrheal state. Very slight haziness through the mesentery. No significant ascites. URINARY BLADDER: Relatively decompressed but thick-walled. REPRODUCTIVE: Prostate gland unremarkable. OSSEOUS STRUCTURES: No acute abnormality. OTHER: None. IMPRESSION: 1. Small bowel wall thickening may reflect nonspecific enteritis. Some fluid in the distal colon suggesting diarrheal state. Dictated on workstation # [id number] Dict: 06/18/23 1401 Trans: 06/18/23 1413 [facility] [id number] Interpreted by: CLARI MGCEE DO Electronically signed by: Departure Impression Primary Impression: Abdominal pain Additional Impressions: Diarrhea Gastroenteritis Elevated LFTs Prostatitis Liver cyst Disposition: HOME, SELF-CARE Condition: Stable Departure-Patient Inst. Decision time for Depature: 14:43 Referrals: KAMINI WHITMORE MD (PCP) Primary Care Physician Patient Instructions: Viral Gastroenteritis, Adult (DC) Add. Discharge Instructions: Your symptoms are likely due to a viral gastroenteritis. Continue taking your ciprofloxacin and finasteride as prescribed for your prostatitis. If you continue to have watery stools, complete the outpatient stool studies. The results will be sent to your primary care provider. Take Zofran as needed for nausea, it can cause constipation, so only take when needed. Take bentyl up to 4 times a day as needed for abdominal pain. Follow-up with your primary care provider regarding your elevated liver enzymes, liver cysts, and calcification in your coronary arteries. Return for any new, concerning, or worsening symptoms. All discharge instructions reviewed with patient and/or family. Voiced understanding. Scripts Dicyclomine HCl (Dicyclomine HCl) 20 Mg Tablet 20 MG PO ACHS, #28 TAB 0 Refills Prov: JENNIE BROOKS APRN 06/18/23 Ondansetron (Ondansetron Odt) 4 Mg Tab.rapdis 4 MG SL Q4H PRN for NAUSEA/VOMITING, #20 TAB Prov: JENNIE BROOKS APRN 06/18/23 Copy Copies To 1: KAMINI WHITMORE MD, BRITTANY R APRN Jun 18, 2023 13:06
[2023-06-18 13:09] LABS: BASOPHILS # (AUTO) 0.1 10^3/uL (0.0-0.1); BASOPHILS % (AUTO) 1 % (0-10); EOSINOPHILS % (AUTO) 0 % (0-10); HEMATOCRIT 41 % (40-54); HEMOGLOBIN 14.6 g/dL (13.3-17.7); LYMPHOCYTES % (AUTO) 11 % (12-44); MEAN CORPUSCULAR HEMOGLOBIN 31 pg (25-34); MEAN CORPUSCULAR HGB CONC 35 g/dL (32-36); MEAN CORPUSCULAR VOLUME 88 fL (80-99); MEAN PLATELET VOLUME 8.9 fL (9.0-12.2); MONOCYTES # (AUTO) 0.5 10^3/uL (0.0-1.0); MONOCYTES % (AUTO) 5 % (0-12); NEUTROPHILS # (AUTO) 7.3 10^3/uL (1.8-7.8); NEUTROPHILS % (AUTO) 83 % (42-75); PLATELET COUNT 211 10^3/uL (130-400); WHITE BLOOD COUNT 8.9 10^3/uL (4.3-11.0)
[2023-06-18] MEDS ORDERED: ONDANSETRON 4 MG/2 ML (SDV) Z0FRAN IVP ONE (13:15)
[2023-06-18] MEDS ORDERED: NS IV 1000 ML 1,000 ML IV SCH (13:15)
[2023-06-18] MEDS ORDERED: fentaNYL INJECTION 100 MCG/2 ML VIAL IVP ONE (13:15)
[2023-06-18 13:17] LABS: POTASSIUM 3.8 MMOL/L (3.6-5.0)
[2023-06-18 13:18] LABS: CALCIUM 9.1 MG/DL (8.5-10.1)
[2023-06-18 13:19] LABS: TOTAL PROTEIN 6.9 GM/DL (6.4-8.2)
[2023-06-18 13:21] LABS: BILIRUBIN,TOTAL 0.5 MG/DL (0.1-1.0)
[2023-06-18 13:23] LABS: CREATININE SERUM 0.98 MG/DL (0.60-1.30)
[2023-06-18 13:34] LABS: CLARITY,URINE CLEAR; COLOR,URINE YELLOW; PH,URINE 7.5 (5-9)
[2023-06-18 13:35] LABS: BACTERIA,URINE NEGATIVE /HPF; BILIRUBIN,URINE NEGATIVE (NEGATIVE); GLUCOSE, URINE (UA) NEGATIVE (NEGATIVE); KETONES,URINE 4+ (NEGATIVE); LEUKOCYTE ESTERASE ,URINE TRACE (NEGATIVE); NITRITE,URINE NEGATIVE (NEGATIVE); PROTEIN,URINE 1+ (NEGATIVE); SQUAMOUS EPITHELIAL CELL,UR 0-2 /HPF
[2023-06-18] MEDS ORDERED: IOHEXOL 350 MG/ML 100 ML (OMNIPAQUE 350) VIAL IV ONE (13:45)
[2023-06-18] MEDS ORDERED: HOLD METFORMIN - RECEIVED CONTRAST 20 ML VIAL IV SCH (13:45)
[2023-06-18] MEDS ORDERED: NS 100 ML (IVPB) BAG IV ONE (13:45)
--- NOTE | 2023-06-18 14:14 | Diagnostic Imaging Report ---
PROCEDURE: CT abdomen and pelvis with contrast. TECHNIQUE: Multiple contiguous axial images were obtained through the abdomen and pelvis after administration of intravenous contrast. Auto Exposure Controls were utilized during the CT exam to meet ALARA standards for radiation dose reduction. All CT scans use one or more of the following dose optimizing techniques: automated exposure control, MA and/or KvP adjustment based on patient size and exam type or iterative reconstruction. INDICATION: 58-year-old male, abdominal discomfort, 9 of 10. Difficulty urinating and having diarrhea. Fever, sweats and chills. CORRELATION STUDY: None. FINDINGS: LOWER THORAX: Heart size normal with prominent coronary artery calcification. Lung bases clear. Mild circumferential wall thickening of the GE junction. LIVER: Probable tiny cysts in both the left and right hepatic lobes. GALLBLADDER: Present and unremarkable. No bile duct dilatation. SPLEEN: Unremarkable. PANCREAS: Unremarkable. ADRENAL GLANDS: Unremarkable. KIDNEYS: Normal enhancement. Symmetric perinephric stranding. No calcification or obstruction. ABDOMINAL AORTA: Unremarkable, nonaneurysmal. A few shotty aortocaval lymph nodes. GASTROINTESTINAL TRACT: Small amount of fluid and retained gastric contents in the stomach. No small bowel obstruction. However, there are some areas of thickened small bowel wall. Normal appendix. Small amount of fluid in the distal colon suggestive of diarrheal state. Very slight haziness through the mesentery. No significant ascites. URINARY BLADDER: Relatively decompressed but thick-walled. REPRODUCTIVE: Prostate gland unremarkable. OSSEOUS STRUCTURES: No acute abnormality. OTHER: None. IMPRESSION: 1. Small bowel wall thickening may reflect nonspecific enteritis. Some fluid in the distal colon suggesting diarrheal state. Dictated by: Dictated on workstation # [id number]
[2023-06-18] MEDS ORDERED: ONDA4TAB11 SL ×2 (14:39→14:51)
[2023-06-18] MEDS ORDERED: TRM50T PO (14:39)
[2023-06-18] MEDS ORDERED: DICY20TA PO ×2 (14:45→14:51)
[2023-06-18 14:55] VITALS: BP 124/88
== END 2023-06-18 14:55 | disposition home or self-care (01) ==
LOC: EDUNIT# 12:40 → ER 12:43
DX: K52.9 Noninfective gastroenteritis and colitis, unspecified (principal); N41.9 Inflammatory disease of prostate, unspecified; K76.89 Other specified diseases of liver
CPT/HCPCS: 36415; 74177; 80053; 81000; 83605; 83690; 85025; 87040

== ENCOUNTER → 2023-06-20 | Outpatient (CLI) | payer BC ==
[~2023-06-20] MED LIST changes: +DICY20TA PO; +ONDA4TAB11 SL; +TRM50T PO
== END ==
LOC: LAB FS 11:45
PROVIDERS: ATTEND Nurse Practitioner
DX: R19.7 Diarrhea, unspecified (principal)
CPT/HCPCS: 87015; 87045; 87046; 87324; 87449; 87899

== ENCOUNTER 2023-06-21 15:06 | Emergency (ER) | payer BC ==
[2023-06-21 15:37] LABS: BASOPHILS # (AUTO) 0.1 10^3/uL (0.0-0.1); BASOPHILS % (AUTO) 1 % (0-10); EOSINOPHILS # (AUTO) 0.1 10^3/uL (0.0-0.3); EOSINOPHILS % (AUTO) 2 % (0-10); HEMATOCRIT 42 % (40-54); HEMOGLOBIN 14.3 g/dL (13.3-17.7); LYMPHOCYTES # (AUTO) 1.5 10^3/uL (1.0-4.0); LYMPHOCYTES % (AUTO) 19 % (12-44); MEAN CORPUSCULAR HEMOGLOBIN 31 pg (25-34); MEAN CORPUSCULAR HGB CONC 34 g/dL (32-36); MEAN CORPUSCULAR VOLUME 91 fL (80-99); MONOCYTES # (AUTO) 0.5 10^3/uL (0.0-1.0); MONOCYTES % (AUTO) 7 % (0-12); NEUTROPHILS # (AUTO) 5.5 10^3/uL (1.8-7.8); NEUTROPHILS % (AUTO) 71 % (42-75); PLATELET COUNT 257 10^3/uL (130-400); WHITE BLOOD COUNT 7.7 10^3/uL (4.3-11.0)
--- NOTE | 2023-06-21 15:38 | ED General ---
General Chief Complaint: Altered Mental Status Stated Complaint: MEMORY LOSS | LACK OF COORDINATION Source of Information: Patient, Other (Significant other, Friend) Exam Limitations: No Limitations History of Present Illness Date Seen by Provider: Jun 21, 2023 Time Seen by Provider: 15:15 Initial Comments 58-year-old male patient presents to the ER complaining of symptoms of intermittent confusion and increased fatigue over the past couple of months. His symptoms seem to have worsened over the past 3 to 7 days. Patient reports that he is under a lot of stress at home, His fiance recently moved out and back in with him. Patient is accompanied by his fiance and his friend. Symptoms significantly worsened when he does not sleep well and he has difficulty sleeping, currently uses Benadryl and hydroxyzine. He has been on other agents in the past but does not tolerate them well. It sounds as though he has an ongoing prostatitis that he is currently being treated for. Patient is requesting a CT scan of his head today. He denies alcohol use but does admit to marijuana use. Allergies and Home Medications Allergies Coded Allergies: cephalexin (Verified Allergy, Unknown, 01/03/19) shellfish derived (Verified Allergy, Unknown, 01/03/19) Patient Home Medication List Home Medication List Reviewed: Yes Albuterol Sulfate (Ventolin Hfa) 1 Puff Puff, 2 PUFF IH Q6H, (Reported) Entered as Reported by: RANDAL HEAD on 04/14/211126 Cyclobenzaprine HCl (Cyclobenzaprine HCl) 10 Mg Tablet, 10 MG PO Q8H PRN for SPASMS, (Reported) Entered as Reported by: RANDAL HEAD on 04/14/21 112 Diclofenac Sodium (Diclofenac Sodium) 75 Mg Tablet.dr, 75 MG PO BID, (Reported) Entered as Reported by: RANDAL HEAD on 04/14/21 112 Dicyclomine HCl (Dicyclomine HCl) 20 Mg Tablet, 20 MG PO ACHS Prescribed by: Jennie Nathan on 06/18/23 1451 Fluticasone Propionate (Fluticasone Propionate) 15.8 Ml [place].susp, 15.8 ML NS BID, (Reported) Entered as Reported by: RANDAL HEAD on 04/14/21 112 Fluticasone/Salmeterol (Advair 250-50 Diskus) 1 Each Blst.w.dev, 1 EACH IH BID, (Reported) Entered as Reported by: RANDAL HEAD on 04/14/211126 Icosapent Ethyl (Vascepa) 1 Gm Capsule, 2 GM PO HS, (Reported) Entered as Reported by: RANDAL HEAD on 04/14/211126 Levothyroxine Sodium (Levothyroxine) 50 Mcg Capsule, 50 MCG PO DAILY, (Reported) Entered as Reported by: RANDAL HEAD on 04/14/211126 Lisinopril (Lisinopril) 40 Mg Tablet, 40 MG PO DAILY, (Reported) Entered as Reported by: RANDAL HEAD on 04/14/211126 Lorazepam (Ativan) 1 Mg Tablet, 1 MG SL TID, (Reported) Entered as Reported by: RANDAL HEAD on 04/14/211126 Metformin HCl (Metformin HCl) 500 Mg Tablet, 1,000 MG PO HS, (Reported) Entered as Reported by: RANDAL HEAD on 04/14/211126 Metoprolol Succinate (Metoprolol Succinate) 50 Mg Tab.er.24h, 50 MG PO DAILY, (Reported) Entered as Reported by: RANDAL HEAD on 04/14/211126 Naltrexone HCl/Bupropion HCl (Contrave ER 8-90 mg Tablet) 1 Each Tablet.er, 1 EACH PO DAILY, (Reported) Entered as Reported by: RANDAL HEAD on 04/14/211126 Ondansetron (Ondansetron Odt) 4 Mg Tab.rapdis, 4 MG SL Q4H PRN for NAUSEA/VOMITING Prescribed by: Jennie Nathan on 06/18/23 1451 Paroxetine HCl (Paroxetine HCl) 40 Mg Tablet, 40 MG PO DAILY, (Reported) Entered as Reported by: RANDAL HEAD on 04/14/211126 Rosuvastatin Calcium (Rosuvastatin Calcium) 20 Mg Tablet, 20 MG PO HS, (Reported) Entered as Reported by: RANDAL HEAD on 04/14/211126 Sildenafil Citrate (Sildenafil Citrate) 100 Mg Tablet, 100 MG PO DAILY, (Reported) Entered as Reported by: RANDAL HEAD on 6/2/21 1127 Tadalafil (Tadalafil) 5 Mg Tablet, 5 MG PO DAILY, (Reported) Entered as Reported by: RANDAL HEAD on 04/14/21 1127 Triamterene/Hydrochlorothiazid (Triamterene-Hctz 37.5-25 mg Cp) 1 Each Capsule, 1 EACH PO DAILY, (Reported) Entered as Reported by: RANDAL HEAD on 04/14/21 1127 Zafirlukast (Zafirlukast) 20 Mg Tablet, 20 MG PO BID, (Reported) Entered as Reported by: RANDAL HEAD on 04/14/21 1127 Discontinued Medications Tramadol HCl (Tramadol HCl) 50 Mg Tablet, 50 MG PO Q6H PRN for ABDOMINAL PAIN Prescribed by: Jennie Nathan on 06/18/23 1440 Review of Systems Review of Systems Constitutional: see HPI (All other systems negative except as documented in HPI.) Past Dlixkxi-Azjxma-Pcaaeq Hx Patient Social History Tobacco Use?: No Use of E-Cig and/or Vaping dev: Yes E-Cig or Vaping type used: Nicotine Substance use?: Yes Substance type: Marijuana Alcohol Use?: No Pt feels they are or have been: No Immunizations Up To Date First/Initial COVID19 Vaccinat: 04-14-21 Second COVID19 Vaccination Alan: 04-14-21 Third COVID19 Vaccination Date: 04-14-21 Seasonal Allergies Seasonal Allergies: No Past Medical History Surgery/Hospitalization HX: EGD DILITATIONS, HTN, ELEVATED CHOLESTEROL, DIABETES, DEPRESSION, STRESS MEDS Surgeries: No Respiratory: No Asthma Cardiac: No Hypertension Neurological: No Genitourinary: No Gastrointestinal: No (ESOPHAGEAL STRICTURE) Musculoskeletal: No Endocrine: Yes (PRE-DIABETIC) Hypothyroidsim HEENT: No Cancer: No Psychosocial: No Integumentary: No Blood Disorders: No Physical Exam Vital Signs Vital Signs - First Documented 06/21/23 15:10 Temp 36.4 Pulse 56 Resp 17 B/P (MAP) 148/90 (109) Pulse Ox 97 O2 Delivery Room Air Capillary Refill : Height, Weight, BMI Height: 5'6.00" Weight: 182lbs. 0.0oz. 82.477819ep; 27.00 BMI Method:Stated General Appearance: No Apparent Distress, WD/WN, Anxious Eyes: Bilateral Eye Normal Inspection, Bilateral Eye PERRL, Bilateral Eye EOMI HEENT: PERRL/EOMI, TMs Normal, Normal ENT Inspection, Pharynx Normal Neck: Full Range of Motion, Normal Inspection, Non Tender, Supple, Carotid Bruit Respiratory: Chest Non Tender, Lungs Clear, Normal Breath Sounds, No Accessory Muscle Use, No Respiratory Distress Cardiovascular: Regular Rate, Rhythm, No Edema, No Gallop, No JVD, No Murmur, Normal Peripheral Pulses Gastrointestinal: Normal Bowel Sounds, No Organomegaly, No Pulsatile Mass, Non Tender, Soft Extremity: Normal Capillary Refill, Normal Inspection, Normal Range of Motion, Non Tender, No Calf Tenderness, No Pedal Edema Neurologic/Psychiatric: Alert, Oriented x3, No Motor/Sensory Deficits; No Abnormal marketing teacher II-XII, No Abnormal Gait, No Aphasia, No Depressed Affect, No Disoriented, No Motor Weakness, No Sensory Deficit; Other (Patient is anxious.) Skin: Normal Color, Warm/Dry Progress/Results/Core Measures Suspected Sepsis SIRS Temperature: Pulse: Respiratory Rate: Laboratory Tests 06/21/23 15:18: White Blood Count 7.7 Blood Pressure / Mean: Laboratory Tests 06/21/23 15:18: Creatinine 1.07, Platelet Count 257, Total Bilirubin 0.3 Results/Orders Lab Results Laboratory Tests Test 06/21/23 15:18 06/21/23 16:05 Range/Units White Blood Count 7.7 4.3-11.0 10^3/uL Red Blood Count 4.64 4.30-5.52 10^6/uL Hemoglobin 14.3 13.3-17.7 g/dL Hematocrit 42 40-54 % Mean Corpuscular Volume 91 80-99 fL Mean Corpuscular Hemoglobin 31 25-34 pg Mean Corpuscular Hemoglobin Concent 34 32-36 g/dL Red Cell Distribution Width 12.1 10.0-14.5 % Platelet Count 257 130-400 10^3/uL Mean Platelet Volume 9.0 9.0-12.2 fL Immature Granulocyte % (Auto) 1 % Neutrophils (%) (Auto) 71 42-75 % Lymphocytes (%) (Auto) 19 12-44 % Monocytes (%) (Auto) 7 0-12 % Eosinophils (%) (Auto) 2 0-10 % Basophils (%) (Auto) 1 0-10 % Neutrophils # (Auto) 5.5 1.8-7.8 10^3/uL Lymphocytes # (Auto) 1.5 1.0-4.0 10^3/uL Monocytes # (Auto) 0.5 0.0-1.0 10^3/uL Eosinophils # (Auto) 0.1 0.0-0.3 10^3/uL Basophils # (Auto) 0.1 0.0-0.1 10^3/uL Immature Granulocyte # (Auto) 0.0 0.0-0.1 10^3/uL Sodium Level 136 135-145 MMOL/L Potassium Level 4.8 3.6-5.0 MMOL/L Chloride Level 105 98-107 MMOL/L Carbon Dioxide Level 21 21-32 MMOL/L Anion Gap 10 5-14 MMOL/L Blood Urea Nitrogen 25 H 7-18 MG/DL Creatinine 1.07 0.60-1.30 MG/DL Estimat Glomerular Filtration Rate 80 BUN/Creatinine Ratio 23 Glucose Level 108 H 70-105 MG/DL Calcium Level 9.5 8.5-10.1 MG/DL Corrected Calcium 9.4 8.5-10.1 MG/DL Total Bilirubin 0.3 0.1-1.0 MG/DL Aspartate Amino Transf (AST/SGOT) 26 5-34 U/L Alanine Aminotransferase (ALT/SGPT) 185 H 0-55 U/L Alkaline Phosphatase 46 40-136 U/L Troponin I < 0.028 <0.028 NG/ML Total Protein 6.9 6.4-8.2 GM/DL Albumin 4.1 3.2-4.5 GM/DL Thyroid Stimulating Hormone (TSH) 2.18 0.35-4.94 UIU/ML Free Thyroxine 1.04 0.70-1.48 NG/DL Serum Alcohol < 10 <10 MG/DL Urine Color YELLOW Urine Clarity CLEAR Urine pH 6.5 5-9 Urine Specific [place] 1.010 L 1.016-1.022 Urine Protein NEGATIVE NEGATIVE Urine Glucose (UA) NEGATIVE NEGATIVE Urine Ketones NEGATIVE NEGATIVE Urine Nitrite NEGATIVE NEGATIVE Urine Bilirubin NEGATIVE NEGATIVE Urine Urobilinogen 0.2 < = 1.0 MG/DL Urine Leukocyte Esterase NEGATIVE NEGATIVE Urine RBC (Auto) NEGATIVE NEGATIVE Urine RBC NONE /HPF Urine WBC NONE /HPF Urine Crystals NONE /LPF Urine Bacteria NEGATIVE /HPF Urine Casts NONE /LPF Urine Mucus NEGATIVE /LPF Urine Culture Indicated NO Urine Opiates Screen NEGATIVE NEGATIVE Urine Oxycodone Screen NEGATIVE NEGATIVE Urine Methadone Screen NEGATIVE NEGATIVE Urine Propoxyphene Screen NEGATIVE NEGATIVE Urine Barbiturates Screen NEGATIVE NEGATIVE Ur Tricyclic Antidepressants Screen NEGATIVE NEGATIVE Urine Phencyclidine Screen NEGATIVE NEGATIVE Urine Amphetamines Screen NEGATIVE NEGATIVE Urine Methamphetamines Screen NEGATIVE NEGATIVE Urine Benzodiazepines Screen POSITIVE H NEGATIVE Urine Cocaine Screen NEGATIVE NEGATIVE Urine Cannabinoids Screen POSITIVE H NEGATIVE My Orders Orders - CAPRI CARREON DO Ct Head Wo (06/21/23 15:26) Alcohol (06/21/23 15:26) Cbc With Automated Diff (06/21/23 15:26) Comprehensive Metabolic Panel (06/21/23 15:26) Drug Screen Stat (Urine) (06/21/23 15:) Thyroid Stimulating Hormone (06/21/23 15:) Troponin I Raul (06/21/23 15:26) Ua Culture If Indicated (06/21/23 15:26) Free T4 (Free Thyroxine) (06/21/23 15:26) Vital Signs/I&O 06/21/23 15:10 Temp 36.4 Pulse 56 Resp 17 B/P (MAP) 148/90 (109) Pulse Ox 97 O2 Delivery Room Air Capillary Refill : Progress Note : Progress Note 1550: This patient was seen for perceived confusion. He seems to be under a lot of stress at home which may be exacerbating his symptoms. Will obtain CT scan of the head, basic laboratory analysis, urine studies. Of note the patient was seen in the ED 3 days ago and diagnosed with viral gastroenteritis but reports his symptoms of diarrhea resolved. 1658: Patient's workup is complete at this time and is unremarkable. CT scan of his head shows no acute process and his laboratory analysis is unremarkable. Discussed with patient that he should try and get some sleep and follow-up with his primary care physician and discuss possible alternatives to his anxiety and PTSD medications for which she is currently taking Klonopin. Patient voices understanding and is in agreement with the plan. Diagnostic Imaging Diagonstic Imaging: CT Comments NAME: MICAH VILLEGASDARRELL REC#: [id number] PT STATUS: REG ER : 1965 PHYSICIAN: CAPRI CARREON DO ADMIT DATE: 06/21/23/ER Draft Date of Exam:06/21/23 CT HEAD WO PROCEDURE: CT head without contrast. TECHNIQUE: Multiple contiguous axial images were obtained through the brain without the use of intravenous contrast. Auto Exposure Controls were utilized during the CT exam to meet ALARA standards for radiation dose reduction. INDICATION: Altered mental status. FINDINGS: The ventricles are normal in size, shape and position. There are no masses or hemorrhages. There are no extra-axial fluid collections. IMPRESSION: Unremarkable CT head. Dictated on workstation # [id number] Dict: 06/21/23 1605 Trans: 06/21/23 1610 [id number] Interpreted by: RENNY BARLOW MD Electronically signed by: Departure Impression Primary Impression: Stress reaction Additional Impression: Intermittent confusion Disposition: 01 HOME, SELF-CARE Condition: Stable Departure-Patient Inst. Referrals: KAMINI WHITMORE MD (PCP/Family) Primary Care Physician Follow up next week. Patient Instructions: Stress Add. Discharge Instructions: Please see your PCP next week for follow up. All discharge instructions reviewed with patient and/or family. Voiced understanding. CAPRI CARREON DO Jun 21, 2023 15:38
[2023-06-21 15:41] LABS: ALBUMIN 4.1 GM/DL (3.2-4.5)
[2023-06-21 15:42] LABS: CHLORIDE 105 MMOL/L (98-107); POTASSIUM 4.8 MMOL/L (3.6-5.0); SODIUM 136 MMOL/L (135-145)
[2023-06-21 15:43] LABS: CALCIUM 9.5 MG/DL (8.5-10.1)
[2023-06-21 15:44] LABS: GLUCOSE 108 MG/DL (70-105); TOTAL PROTEIN 6.9 GM/DL (6.4-8.2)
[2023-06-21 15:45] LABS: CARBON DIOXIDE 21 MMOL/L (21-32)
[2023-06-21 15:46] LABS: BILIRUBIN,TOTAL 0.3 MG/DL (0.1-1.0)
[2023-06-21 15:48] LABS: ALKALINE PHOSPHATASE 46 U/L (40-136); CREATININE SERUM 1.07 MG/DL (0.60-1.30); GFR ESTIMATED 80
[2023-06-21 15:49] LABS: BUN/CREATININE RATIO 23
[2023-06-21 15:51] LABS: ALANINE AMINOTRANSFERASE 185 U/L (0-55)
[2023-06-21 16:11] LABS: FREE T4 (FREE THYROXINE) 1.04 NG/DL (0.70-1.48)
--- NOTE | 2023-06-21 16:11 | Diagnostic Imaging Report ---
PROCEDURE: CT head without contrast. TECHNIQUE: Multiple contiguous axial images were obtained through the brain without the use of intravenous contrast. Auto Exposure Controls were utilized during the CT exam to meet ALARA standards for radiation dose reduction. INDICATION: Altered mental status. FINDINGS: The ventricles are normal in size, shape and position. There are no masses or hemorrhages. There are no extra-axial fluid collections. IMPRESSION: Unremarkable CT head. Dictated by: Dictated on workstation # [id number]
[2023-06-21 16:20] LABS: BACTERIA,URINE NEGATIVE /HPF; BILIRUBIN,URINE NEGATIVE (NEGATIVE); CLARITY,URINE CLEAR; COLOR,URINE YELLOW; GLUCOSE, URINE (UA) NEGATIVE (NEGATIVE); KETONES,URINE NEGATIVE (NEGATIVE); LEUKOCYTE ESTERASE ,URINE NEGATIVE (NEGATIVE); NITRITE,URINE NEGATIVE (NEGATIVE); PH,URINE 6.5 (5-9); PROTEIN,URINE NEGATIVE (NEGATIVE)
[2023-06-21 16:26] LABS: AMPHETAMINE SCREEN, URINE NEGATIVE (NEGATIVE); BARBITURATE SCREEN URINE NEGATIVE (NEGATIVE); BENZODIAZEPINES SCREEN URINE POSITIVE (NEGATIVE); CANNABINOID SCREEN, URINE POSITIVE (NEGATIVE); COCAINE SCREEN URINE NEGATIVE (NEGATIVE); METHADONE STAT NEGATIVE (NEGATIVE); OPIATE SCREEN URINE NEGATIVE (NEGATIVE); OXYCODONE STAT NEGATIVE (NEGATIVE); PROPOXYPHENE STAT NEGATIVE (NEGATIVE); TRICYCLIC ANTIDEPRESSANTS SCRE NEGATIVE (NEGATIVE)
[2023-06-21 17:14] VITALS: BP 144/84
== END 2023-06-21 17:15 | disposition home or self-care (01) ==
LOC: EDUNIT# 15:06 → ER 15:07
DX: F43.9 Reaction to severe stress, unspecified (principal); R41.0 Disorientation, unspecified; F17.290 Nicotine dependence, other tobacco product, uncomplicated
CPT/HCPCS: 70450; 80053; 80306; 81000; 84439; 84443; 84484; 85025; 99283; G0480; 36415; 80320